=== PATIENT | female | born 1980 | race Caucasian/White ===

== ENCOUNTER 2021-05-29 20:05 | Emergency (ER) | payer OTHER ==
[~2021-05-29] VITALS: Ht 160 cm; Wt 59.0 kg
[2021-05-29] MEDS ORDERED: TETANUS/DIPHTHERIA TOX ADULT 0.5 ML SYR IM ONE (20:30)
[2021-05-29] MEDS ORDERED: ACETAMINOPHEN/CODEINE 300MG - 30MG TAB PO ONE (20:30)
[2021-05-29] MEDS ORDERED: DOXYCYCLINE HY100 MG PO (22:04)
== END 2021-05-29 21:20 | disposition home or self-care (01) ==
LOC: ER 20:25
DX: S60.412A Abrasion of right middle finger, initial encounter (principal); W23.1XXA Caught, crushed, jammed, or pinched between stationary objects, initial encounter
CPT/HCPCS: 90714; 99283

== ENCOUNTER 2021-08-02 22:17 | Emergency (ER) | payer OTHER ==
[~2021-08-02] VITALS: Ht 160 cm; Wt 59.0 kg
[~2021-08-02 22:17] MED LIST: DOXYCYCLINE HY100 MG PO
[2021-08-03] MEDS ORDERED: CASIRIVIMAB/IMDEVIMAB 10 ML in SODIUM CHLORIDE 0.9% 100 ML IV ONE ×2
== END 2021-08-03 00:56 | disposition home or self-care (01) ==
LOC: ER 22:38
DX: R05 Cough (principal); U07.1 COVID-19; F32.9 Major depressive disorder, single episode, unspecified; F17.210 Nicotine dependence, cigarettes, uncomplicated
CPT/HCPCS: 71045; 99283; J7050; U0002

== ENCOUNTER 2021-12-15 20:40 | Emergency (ER) | payer OTHER ==
[~2021-12-15] VITALS: Ht 160 cm; Wt 61.2 kg
[2021-12-15] MEDS ORDERED: KETOROLAC TROMETHAMINE 60 MG/2 ML VIAL IM ONE (21:15)
[2021-12-15] MEDS ORDERED: KETOROLAC TROMETHAMINE 60 MG/2 ML VIAL ONE (21:23)
== END 2021-12-15 21:22 | disposition home or self-care (01) ==
LOC: ER 20:42
DX: K02.9 Dental caries, unspecified (principal); K04.7 Periapical abscess without sinus
CPT/HCPCS: 99282; J1885

== ENCOUNTER 2023-01-14 14:07 | Emergency (ER) | payer OTHER ==
[~2023-01-14] VITALS: Ht 160 cm; Wt 63.5 kg
[~2023-01-14 14:07] MED LIST changes: +KETOROLAC TROME10 MG PO; +METHOCARBAMOL750 MG PO; +PREDNISONE50 MG PO
[2023-01-14] MEDS ORDERED: SODIUM CHLORIDE 0.9% 1000ML 1,000 ML IV STA (14:18)
[2023-01-14 14:38] LABS: BASOPHILS # (AUTO) 0.1 (0.0-0.1); EOSINOPHILS # (AUTO) 0.1 (0.0-0.4); EOSINOPHILS % 0.7 % (0.0-6.0); HEMATOCRIT 40.4 % (34.2-44.1); HEMOGLOBIN 13.8 g/dL (12.0-16.0); LYMPHOCYTES # (AUTO) 1.7 (1.0-3.2); LYMPHOCYTES % 25.9 % (18.0-39.1); MEAN CORPUSCULAR HEMOGLOBIN 30.2 pg (28-32); MEAN CORPUSCULAR HGB CONC 34.2 g/dL (31-35); MEAN CORPUSCULAR VOLUME 88.4 fL (81-99); MONOCYTES # (AUTO) 0.5 (0.2-0.8); MONOCYTES % 6.9 % (4.4-11.3); NEUTROPHILS # (AUTO) 4.3 (2.1-6.9); NEUTROPHILS % 65.2 % (38.7-80.0); PLATELET COUNT 232 x10e3/uL (140-360); RED BLOOD COUNT 4.57 x10e6/uL (3.6-5.1); RED CELL DISTRIBUTION WIDTH 12.1 % (11.7-14.4)
[2023-01-14] MEDS ORDERED: CLINDAMYCIN PHOS 900MG/ 50ML 50 ML IV ONE (14:45)
[2023-01-14 14:59] LABS: ALBUMIN 3.9 g/dL (3.5-5.0); ALBUMIN/GLOBULIN RATIO 1.2 (0.8-2.0); ANION GAP 12.3 mmol/L (8-16); CALCIUM 9.3 mg/dL (8.4-10.2); CREATININE, SERUM 0.93 mg/dL (0.57-1.11); POTASSIUM 4.3 mmol/L (3.5-5.1)
[2023-01-14] MEDS ORDERED: CLINDAMYCIN HC150 MG PO (15:32)
[2023-01-14] MEDS ORDERED: HYDROCODONE/APAP 7.5MG-325MG 1 EA TAB PO ONE (16:15)
== END 2023-01-14 15:44 | disposition home or self-care (01) ==
LOC: ER 14:10
DX: K04.7 Periapical abscess without sinus (principal); K02.9 Dental caries, unspecified; I10 Essential (primary) hypertension; F32.A Depression, unspecified
CPT/HCPCS: 36415; 80053; 85025; 99283; J7030